=== PATIENT | male | born 1945 | race Caucasian/White ===

== ENCOUNTER → 2017-01-29 14:46 | Outpatient (CLI) | payer MEDICARE ==
[2010-12-28 14:04] VITALS: BMI 28.8
== END | disposition home or self-care (01) ==
LOC: D.MRI 14:46
DX: M51.36 Other intervertebral disc degeneration, lumbar region (principal)

== ENCOUNTER 2019-04-11 20:32 | Emergency (ER) | payer MEDICARE ==
[~2019-04-11] VITALS: Ht 172.7 cm; Wt 102.3 kg
[2019-04-11 20:36] VITALS: Ht 172.7 cm; Wt 102.3 kg
[2019-04-11] MEDS ORDERED: ALLERGY MEDICINE (20:38)
[2019-04-11] MEDS ORDERED: NORVASC5 MG PO (20:38)
[2019-04-11] MEDS ORDERED: LIPITOR20 MG PO (20:38)
[2019-04-11] MEDS ORDERED: ZOLOFT25 MG PO (20:38)
[2019-04-11] MEDS ORDERED: HYDROXYZINE HCL10 MG PO ×2 (20:39)
[2019-04-11] MEDS ORDERED: BACLOFEN20 M1 PO (21:21)
[2019-04-11] MEDS ORDERED: VOLTAREN75 MG PO (21:21)
[2019-04-11 22:17] VITALS: BP 167/50
== END 2019-04-11 22:18 | disposition home or self-care (01) ==
LOC: D.ER 20:32
DX: M54.2 Cervicalgia (principal)

== ENCOUNTER 2019-04-26 08:12 | Inpatient (IN) | payer MEDICARE ==
[~2019-04-26] VITALS: Ht 172.7 cm; Wt 82.7 kg
[~2019-04-26 08:12] MED LIST: ALLERGY MEDICINE; BACLOFEN20 M1 PO; HYDROXYZINE HCL10 MG PO; LIPITOR20 MG PO; NORVASC5 MG PO; VOLTAREN75 MG PO; ZOLOFT25 MG PO
[2019-04-26 08:54] LABS: HEMATOCRIT 35.6 % (42.0-54.0); HEMOGLOBIN 11.6 g/dL (13.5-17.5); MCH 31.8 pg (26.0-34.0); MCHC 32.6 g/dL (31.0-37.0); MCV 97.5 fL (80.0-100.0); MEAN PLATELET VOLUME 10.3 fL (7.4-10.4); PLATELET COUNT 717 10x3/uL (130-400); RBC 3.65 10x6/uL (4.20-6.10); RDW 14.2 % (11.5-14.5); WBC 28.6 10x3/uL (4.8-10.8)
[2019-04-26 09:28] LABS: UDS - AMPHET NEGATIVE QUAL (NEGATIVE); UDS - BARB NEGATIVE QUAL (NEGATIVE); UDS - BENZO POSITIVE QUAL (NEGATIVE); UDS - COCAINE NEGATIVE QUAL (NEGATIVE); UDS - OPIATE NEGATIVE QUAL (NEGATIVE); UDS - PCP NEGATIVE QUAL (NEGATIVE); UDS - THC NEGATIVE QUAL (NEGATIVE)
[2019-04-26 09:29] LABS: ALKALINE PHOSPHATASE 108 U/L (46-116); ALT (SGPT) 0 U/L (10-68); BILIRUBIN - TOTAL 0.98 mg/dL (0.2-1.3); CALC OSMOLALITY 288 mosm/kg (275-300); CALCIUM 9.6 mg/dL (8.5-10.1); CARBON DIOXIDE 27.3 mmol/L (21.0-32.0); CHLORIDE - SERUM 102 mmol/L (98-107); CKMB 70.2 U/L (0.0-3.6); CREATINE KINASE 654 UL (21-232); GLUCOSE 116 mg/dL (74-106); POTASSIUM - SERUM 3.7 mmol/L (3.5-5.1); PROTEIN - SERUM 8.4 g/dL (6.4-8.2); SODIUM 142 mmol/L (136-145); THYROID STIMULATING HORMONE 1.55 uIU/mL (0.36-3.74); UREA NITROGEN 27 mg/dL (7-18)
[2019-04-26 09:30] LABS: APPEARANCE CLEAR (CLEAR); BILIRUBIN NEGATIVE (NEGATIVE); COLOR YELLOW (YELLOW); GLUCOSE NEGATIVE (NEGATIVE); KETONE NEGATIVE (NEGATIVE); NITRITE POSITIVE (NEGATIVE); PROTEIN TRACE mg/dL (NEGATIVE); UROBILINOGEN NORMAL (NORMAL)
[2019-04-26 09:31] LABS: BACTERIA MODERATE /hpf (NEGATIVE); RED CELLS - URINE OCC /hpf (0-5); WHITE CELLS - URINE 0-5 /hpf (NEGATIVE)
[2019-04-26 09:31] LABS: TROPONIN-I 0.154 ng/mL (0.000-0.060)
[2019-04-26 09:49] LABS: APTT 44.1 SECONDS (22.8-39.4); INR 1.28 (0.85-1.17); PROTIME 15.4 SECONDS (11.6-15.0)
[2019-04-26 10:23] LABS: ALBUMIN 1.9 g/dL (3.4-5.0); CREATININE - SERUM 0.8 mg/dL (0.6-1.3); MAGNESIUM - SERUM 2.1 mg/dL (1.8-2.4); eGFR NON AFRICAN AMERICAN > 90 mL/min (90-120)
[2019-04-26 10:40] VITALS: BP 134/83
[2019-04-26 10:41] LABS: EOSINOPHILS 4 % (0-7); LYMPHOCYTES 4 % (15-50); MONOCYTES 1 % (2-11); NEUTROPHILS 90 % (40-80); PLATELET ESTIMATE INCREASED
[2019-04-26 12:44] VITALS: BP 131/82
[2019-04-26 13:44] VITALS: BP 135/97
[2019-04-26 14:38] LABS: % SATURATION 11 % (15-55); IRON 18 ug/dl (35-150); TOTAL IRON BIND CAPACITY 151 ug/dl (260-445); UNSAT IRON BIND CAPACITY 133 ug/dl (150-375)
[2019-04-26 15:16] LABS: CKMB 66.4 U/L (0.0-3.6); CREATINE KINASE 704 UL (21-232)
[2019-04-26 15:21] LABS: TROPONIN-I 13.411 ng/mL (0.000-0.060)
--- NOTE | 2019-04-26 15:25 | NUR ---
IN PATIENT CHART TO REVIEW LABS AND RECEVIED CRITICAL LAB ON PATIENT AT THIS TIME HIS NURSE WAS BUSY.
[2019-04-26 15:58] VITALS: BP 112/84
--- NOTE | 2019-04-26 16:19 | NUR ---
DAUGHTER IN LAW, POWER OF ATTORNY BENJI JEFF: .
[2019-04-26 16:27] VITALS: Ht 172.7 cm; Wt 82.7 kg
--- NOTE | 2019-04-26 16:44 | NUR ---
ASSESSMENT COMPLETE SOB NOTED DR FLETCHER HERE ASSESSING PT'S CARDIAC STATUS WILL CONTINUE TO MONITOR
--- NOTE | 2019-04-26 17:07 | NUR ---
PT ARRIVED VIA STRETCHER TO ROOM, OBVIOUSLY CONFUSED WITH MOMENTS OF LUCIDITY. GRANDDAUGHTERS AND GREAT GRANDDAUGHTER AT BEDSIDE INFROM ME PT IS A HEAVY DRINKER WHO HAS NOT HAD ETOH IN SEVERAL DAYS. PT WAS LAYING ON THE FLOOR LYING STILL.
--- NOTE | 2019-04-26 17:21 | NUR ---
CONT. OF PREVIOUS NOTES. PT WAS IN FLOOR AT HOME FOR 2 DAYS. DAUGHTER IN LAW CAME IN SAYING SHE WILL BRING BY HER POA PAPERWORK. ATTEMPTED TO TAKE PT TO MRI, PT WAS UNABLE TO TOLERATE MORE THAN 45 MINUTES. NOW BACK IN ROOM, PT STATES "IT'S HARD TO PEE WHEN A GIRLS PLAYING WITH IT". NO FAMILY PRESENTA T THIS TIME. CL IN REACH, SRX2, BED ALARM ON AND WORKING WNL.
--- NOTE | 2019-04-26 18:38 | NUR ---
PT PULLED I/V OUT.
--- NOTE | 2019-04-26 19:31 | NUR ---
PT CARE ASSUMED. NEW 22G IV STARTED TO LEFT HAND X1 ATTEMPT. NO VOICED C/O OR CONCERNS AT THIS TIME. GRANDDAUGHTER AT BEDSIDE. CALL LIGHT IN REACH. WILL CTM.
[2019-04-26 20:00] VITALS: BP 133/72
[2019-04-26 21:49] LABS: CKMB 44.3 U/L (0.0-3.6); CREATINE KINASE 605 UL (21-232)
[2019-04-26 22:15] LABS: TROPONIN-I 14.095 ng/mL (0.000-0.060)
[2019-04-27] VITALS (10 sets, daily range): BP systolic 90–134; BP diastolic 44–78
--- NOTE | 2019-04-27 01:58 | NUR ---
PT INCONT OF BOWEL AND BLADDER DURING THE NIGHT. PT NOT ORIENTED STATES HE IS AT "MY [employer]" BUT IS ABLE TO FOLLOW COMMANDS . PTS GRANDDAUGHTER WENT HOME. FALL PRECAUTIONS IN PLACE. WILL CTM.
[2019-04-27 03:12] LABS: BASOPHILS 0 % (0-2); EOSINOPHILS 0 % (0-7); HEMATOCRIT 35.6 % (42.0-54.0); HEMOGLOBIN 11.6 g/dL (13.5-17.5); IMMATURE GRANULOCYTES 0.5 % (0-5); LYMPHOCYTES 3.2 % (15-50); MCH 31.7 pg (26.0-34.0); MCHC 32.6 g/dL (31.0-37.0); MCV 97.3 fL (80.0-100.0); MEAN PLATELET VOLUME 10.8 fL (7.4-10.4); NEUTROPHILS 87.3 % (40-80); PLATELET COUNT 568 10x3/uL (130-400); RBC 3.66 10x6/uL (4.20-6.10); RDW 14.4 % (11.5-14.5); WBC 20.5 10x3/uL (4.8-10.8)
[2019-04-27 03:38] LABS: ALBUMIN 1.5 g/dL (3.4-5.0); ALKALINE PHOSPHATASE 79 U/L (46-116); BILIRUBIN - TOTAL 0.83 mg/dL (0.2-1.3); CALCIUM 8.3 mg/dL (8.5-10.1); CARBON DIOXIDE 24.5 mmol/L (21.0-32.0); CHLORIDE - SERUM 108 mmol/L (98-107); CKMB 42.2 U/L (0.0-3.6); CREATINE KINASE 594 UL (21-232); CREATININE - SERUM 0.7 mg/dL (0.6-1.3); GLUCOSE 123 mg/dL (74-106); PHOSPHOROUS 3.9 mg/dL (2.5-4.9); PROTEIN - SERUM 6.6 g/dL (6.4-8.2); SODIUM 143 mmol/L (136-145); eGFR NON AFRICAN AMERICAN > 90 mL/min (90-120)
[2019-04-27 03:40] LABS: ALT (SGPT) 80 U/L (10-68); CALC OSMOLALITY 288 mosm/kg (275-300); POTASSIUM - SERUM 3.6 mmol/L (3.5-5.1); UREA NITROGEN 20 mg/dL (7-18)
[2019-04-27 03:41] LABS: TROPONIN-I 16.498 ng/mL (0.000-0.060)
--- NOTE | 2019-04-27 14:46 | NUR ---
ATTEMPTED MRI ON 04-27-19. NURSE ISAIAH GAVE PATIENT ORAL MEDS TO TRY MRI. ISAIAH STATED CANNOT DO TODAY BC PATIENT GOING THROUGH [facility] TRY TOMORROW. ISAIAH CALLED BACK AND SAID DR. HIGGINS ORDERED IV MEDS. WENT TO GET PATIENT AND ISAIAH SAID NO WAY TO DO PATIENT TODAY, PATIENT GOING TO ICU.
--- NOTE | 2019-04-27 15:18 | NUR ---
IN PATIENT CHART ASSISTING WITH ORDERING TEST FOR PATIENT. NEW ORDERS FOR ABG AND STAT CXR.
--- NOTE | 2019-04-27 15:40 | NUR ---
PER PTS FAMILY & POA, "WE HAVE ALL COME TO THE DECISION TO MAKE HIM A DNR." FAMILY STATE THEY UNDERSTAND PT STATUS AND SITUATION. ALL QUESTIONS AND CONCERNS ADRESSED. DR HIGGINS NOTIFIED OF THIS.
--- NOTE | 2019-04-27 15:42 | NUR ---
EMERENCY CONTACT INFORMATION UPDATED. CALL IN CODE DETERMINED.
--- NOTE | 2019-04-27 18:35 | NUR ---
1500-RECIEVED INTO 231-RR 48-POOR A/E VIA AIR WAY--SUCTIONED NASAL TRACHEAL FOR LARGE AMOUNT THICK YELLOW MUCUS-NOT ABLE TO ILLICIT COUGH-NON REBREATER IN PLACE -COARSE RHONCHI EMMA AND MID STERNAL-PT OBTUNDED -NOTED UPPER TORSO SHAKING -HOB ELEVATED TO 30 DEGREES 1510-NOT ABLE TO CLEAR AIRWAY-ORAL TRACHEAL SUCTION REPEATED FOR LARGE THICK YELLOW MUCUS-AIRWAY CLEAR-RR 44-LAB DRAWN FOR AMMONIA -PORT CXR DONE-DR HIGGINS AT BEDSIDE AND MADE AWARE OF CURRENT STATUS AND PT NOT ABLE TO CLEAR AIRWAY-FAMILY STATED DNR-ABG DRAWN 3300-
--- NOTE | 2019-04-27 18:51 | NUR ---
DR HIGGINS NOTIFIED OF NIBP -98 SYS 78 SYS-HR 74
[2019-04-27 18:53] LABS: HEMATOCRIT 38.6 % (42.0-54.0)
--- NOTE | 2019-04-27 19:00 | NUR ---
BEDSIDE REPORT AND SHIFT ASSESSMENT COMPLETE. VSS, NO SIGNS OF ACUTE DISTRESS NOTED. L WRIST PIV PATENT, NS FLUID BOLUS IN PROGRESS. O2 96 ON 9L HIGH FLOW NC. CALL LIGHT IN REACH, WILL CONTINUE TO MONITOR.
--- NOTE | 2019-04-27 21:00 | NUR ---
AGONAL BREATHING NOTED. FAMILY AT BEDSIDE STATES PT IS DNR. VITAL SIGNS TRENDING DOWN, WILL MONITOR.
--- NOTE | 2019-04-27 21:39 | NUR ---
SPOKE WITH DR HIGGINS, NOTIFIED OF PT PASSING - ASYSTOLE AT 2123. STATED HE WOULD CALL ER MD TO COME PRONOUNCE .
--- NOTE | 2019-04-27 21:41 | NUR ---
DR FLETCHER NOTIFIED OF PT PASSING.
--- NOTE | 2019-04-27 22:13 | NUR ---
MARISOL NOTIFIED OF PT PASSING, MATERIAL PREPARATION WORKER RODNEY, CASE # [id number].
--- NOTE | 2019-04-27 22:19 | NUR ---
RELEASE GRANTED TO CONTACT [facility] BY [employer] STOCK ROLLER.
--- NOTE | 2019-04-27 22:38 | NUR ---
RODNEY FROM [facility] CALLED BACK, STATES PT IS RULED OUT AND NOT A CANDIDATE FOR DONATION.
--- NOTE | 2019-04-27 23:54 | NUR ---
HOME PRESENT TO IRRIGATION PUMP INSTALLER PT.
== END 2019-04-27 21:24 | DRG 871 ==
LOC: D.ER 08:12 → D.M2 13:20 → D.ICU 04-27 15:18
PROVIDERS: Family Medicine; ADMIT Internal Medicine Nephrology; ATTEND Internal Medicine Nephrology
DX: A41.01 Sepsis due to Methicillin susceptible Staphylococcus aureus (principal); G93.41 Metabolic encephalopathy; E43 Unspecified severe protein-calorie malnutrition; J18.1 Lobar pneumonia, unspecified organism; I21.4 Non-ST elevation (NSTEMI) myocardial infarction; R40.2214 Coma scale, best verbal response, none, 24 hours or more after hospital admission; R40.2114 Coma scale, eyes open, never, 24 hours or more after hospital admission; M62.82 Rhabdomyolysis; N39.0 Urinary tract infection, site not specified; F17.203 Nicotine dependence unspecified, with withdrawal; D50.9 Iron deficiency anemia, unspecified; I10 Essential (primary) hypertension; E78.5 Hyperlipidemia, unspecified; F10.10 Alcohol abuse, uncomplicated; F41.8 Other specified anxiety disorders; I25.10 Atherosclerotic heart disease of native coronary artery without angina pectoris; R09.02 Hypoxemia; R40.2354 Coma scale, best motor response, localizes pain, 24 hours or more after hospital admission